=== PATIENT | female | born 1985 | race Caucasian/White ===

== ENCOUNTER 2017-09-01 13:33 | Outpatient (RCR) | payer OTHER, BC ==
[2017-07-21] MEDS: diphenhydrAMINE 25 MG CAP PO PRN (14:47)
[2017-07-21] MEDS: ACETAMINOPHEN 500 MG TAB PO PRN (14:48)
[2017-07-21 15:19] LABS: PLATELET COUNT, AUTOMATED 409 K/uL (150-450)
[2017-07-21 17:11] VITALS: BP 135/85
[~2017-09-01] VITALS: Ht 167.6 cm; Wt 94.3 kg
[~2017-09-01 13:33] MED LIST: AMOX-559 PO; CHOL500045 PO; CODE118S5 PO; DESO1TAB16 PO; DEXTROSE 5%(*) 100 ML BAG 100 ML IVPB PRN; ETON68IM SQ; LIDOCAINE/SOD BICARB 8.4% SYR ID PRN; LOSA-57 PO; NS 0.9% IVPB ONE; NS(*) 0.9% 100 ML BAG 100 ML IVPB PRN; PRED-1 PO; PRED50TA22 PO; RIT100I IV; TOCILIZUMAB IVPB ONE; [UNRECOGNIZED DRUG - CODE] IVPB
[2017-09-01] MEDS: diphenhydrAMINE 25 MG CAP PO PRN (14:21)
[2017-09-01 14:22] VITALS: BP 114/84
[2017-09-01] MEDS: ACETAMINOPHEN 500 MG TAB PO PRN (14:22)
[2017-09-01] MEDS ORDERED: TOCILIZUMAB IVPB ONE (15:00)
[2017-09-01] MEDS ORDERED: NS 0.9% IVPB ONE (15:00)
[2017-10-06] MEDS ORDERED: OMEP-137 PO (08:45)
[2017-10-06] MEDS ORDERED: ESTR42.5 PV (08:51)
== END 2017-10-18 ==
LOC: SPU 13:33
PROVIDERS: ATTEND Physician Assistant
DX: G36.0 Neuromyelitis optica [Devic] (principal)
CPT/HCPCS: 85025; 96365; J3262; J7050; Q0163; 82040; 82247; 82310; 82374; 82435; 82565; 82947; 84075; 84132; 84155; 84295; 84450; 84460; 84520

== ENCOUNTER → 2017-09-19 | Outpatient (CLI) | payer OTHER, BC ==
[~2017-09-19] MED LIST changes: -DEXTROSE 5%(*) 100 ML BAG 100 ML IVPB PRN; -LIDOCAINE/SOD BICARB 8.4% SYR ID PRN; -NS 0.9% IVPB ONE; -NS(*) 0.9% 100 ML BAG 100 ML IVPB PRN; -TOCILIZUMAB IVPB ONE
== END ==
LOC: LAB 16:31
PROVIDERS: ATTEND Nurse Practitioner Primary Care
DX: J02.9 Acute pharyngitis, unspecified (principal)
CPT/HCPCS: 86308

== ENCOUNTER → 2017-09-19 | Outpatient (CLI) | payer OTHER, BC | LOC: LAB 10:57 | PROVIDERS: ATTEND Nurse Practitioner Primary Care | DX: J02.9 Acute pharyngitis, unspecified (principal) | CPT/HCPCS: 87070 ==

== ENCOUNTER 2017-10-20 13:37 | Outpatient (RCR) | payer OTHER, BC ==
[~2017-10-20 13:37] MED LIST changes: +DEXTROSE 5%(*) 100 ML BAG 100 ML IVPB PRN; +ESTR42.5 PV; +LIDOCAINE/SOD BICARB 8.4% SYR ID PRN; +NS(*) 0.9% 100 ML BAG 100 ML IVPB PRN; +OMEP-137 PO
[2017-10-20 14:10] VITALS: BP 135/86
[2017-10-20] MEDS ORDERED: ACETAMINOPHEN 500 MG TAB PO PRN (14:10)
[2017-10-20 14:14] LABS: PLATELET COUNT, AUTOMATED 254 K/uL (150-450)
[2017-10-20] MEDS ORDERED: diphenhydrAMINE 25 MG CAP PO PRN (14:15)
[2017-10-20 14:37] LABS: LDL CHOLESTEROL 71 mg/dl
[2017-10-20] MEDS ORDERED: NS 0.9% IVPB ONE (14:45)
[2017-10-20] MEDS ORDERED: TOCILIZUMAB IVPB ONE (14:45)
[2017-10-20 16:13] VITALS: BP 116/81
[2017-11-08] MEDS ORDERED: LEVO-85 PO (10:17)
[2017-11-08] MEDS ORDERED: PRED20TA6 PO (10:17)
== END 2017-12-01 10:09 | disposition home or self-care (01) ==
LOC: SPU 13:37
PROVIDERS: ATTEND Physician Assistant
DX: G36.0 Neuromyelitis optica [Devic] (principal)
CPT/HCPCS: 85025; 96365; J3262; J7050; Q0163; 82040; 82247; 82310; 82374; 82435; 82465; 82565; 82947; 83718; 84075; 84132; 84155; 84295; 84450; 84460; 84478; 84520

== ENCOUNTER 2017-12-21 07:47 | Outpatient (RCR) | payer OTHER, BC ==
[~2017-12-21 07:47] MED LIST changes: -DEXTROSE 5%(*) 100 ML BAG 100 ML IVPB PRN; +LEVO-85 PO; -LIDOCAINE/SOD BICARB 8.4% SYR ID PRN; -NS(*) 0.9% 100 ML BAG 100 ML IVPB PRN; +PRED20TA6 PO
[2017-12-21] MEDS ORDERED: LIDOCAINE/SOD BICARB 8.4% SYR ID PRN (12:15)
[2017-12-21] MEDS ORDERED: NS(*) 0.9% 100 ML BAG 100 ML IVPB PRN (12:15)
[2017-12-21] MEDS ORDERED: DEXTROSE 5%(*) 100 ML BAG 100 ML IVPB PRN (12:15)
[2017-12-21 13:05] VITALS: BP 132/85
[2017-12-21] MEDS ORDERED: ACETAMINOPHEN 500 MG TAB PO PRN (13:35)
[2017-12-21] MEDS ORDERED: LORATADINE 10 MG TAB PO PRN (13:35)
[2017-12-21] MEDS ORDERED: NS 0.9% IVPB ONE (13:50)
[2017-12-21] MEDS ORDERED: TOCILIZUMAB IVPB ONE (13:50)
[2017-12-21 15:14] VITALS: BP 135/76
== END 2017-12-27 13:56 | disposition home or self-care (01) ==
LOC: SPU 07:47
PROVIDERS: ATTEND Physician Assistant
DX: G36.0 Neuromyelitis optica [Devic] (principal); Z79.899 Other long term (current) drug therapy
CPT/HCPCS: 96365; J3262; J7050

== ENCOUNTER → 2018-03-13 | Outpatient (CLI) | payer OTHER, BC ==
--- NOTE | 2018-03-13 13:42 | RADIOLOGY IMAGING REPORT ---
[place] [facility] [place]IENT NAME: Sabiha Croft : 1985 MR: [id number] V: [id number] EXAM DATE: ORDERING PHYSICIAN: SHARIFA BROTHERS TECHNOLOGIST: Location: [facility] [place] Patient: Sabiha Croft : 1985 Visit/Account:[id number] Date of Sevice: 03/13/2018 KNEE RIGHT W/O CONTRAST COMPARISON: None. HISTORY: Knee pain since October 2017, meniscal pathology, possible chondral injury. Right knee pain. TECHNIQUE: Noncontrast multiplanar MRI of the right knee utilizing T1 weighted and fluid sensitive s equences. CONTRAST: None. FINDINGS: Suboptimal examination because of motion artifact. Motion minimizing sequences were utilized but thes e can cause artifactual signal changes in the meniscal and chondral cartilages. FLUID: Moderate sized simple effusion. There is no He's cyst. MENISCI: Limited assessment because of motion artifact. No definite meniscal tear identified. TENDONS/LIGAMENTS: The cruciate and medial collateral ligaments, lateral collateral ligamentous comp mikayla, retinacula and extensor mechanism are intact and normal in signal. The biceps and popliteus tend ons are intact. MUSCLES: There is no muscle atrophy or edema. BONES AND CARTILAGE: Small focus of heterogeneous cartilage signal lining the posterior weightbearin g lateral femoral condyle with mild subjacent subchondral edema. No definite cartilage defects in the medial or patellofemoral compartments when accounting for motion artifact. Otherwise normal marrow s ignal and alignment. OTHER: Negative. IMPRESSION: 1. Suboptimal study because of motion artifact. 2. Moderate size right knee effusion. 3. Mild lateral femoral condyle chondromalacia with mild adjacent bone marrow edema. Report Dictated By: Heron Stringer at 03/13/2018 1:34 PM Report E-Signed By: Heron Stringer at 03/13/2018 1:38 PM WSN:[id number]
== END ==
LOC: MRI 07:06
PROVIDERS: ATTEND Orthopaedic Surgery
DX: M94.261 Chondromalacia, right knee (principal); M25.461 Effusion, right knee

== ENCOUNTER 2018-03-21 15:15 | Outpatient (RCR) | payer OTHER, BC ==
--- NOTE | 2018-01-02 11:45 | PT INITIAL EVALUATION ---
MEDICAL DIAGNOSIS: R knee pain, patella maltracking, muscle tightness, inflammation d/t autoimmune disease TREATMENT DIAGNOSIS: same DATE OF ONSET: 12/11/17 SUBJECTIVE: Sabiha Croft presents to physical therapy with complaints of R knee pain that started approximately 3 weeks ago. She reports that she has to routinely have her R knee drained approximately every 2 years due to her autoimmune disease; however, she states that luckily it is a different issue that is much more treatable. She reports that the R knee becomes worse with going down stairs and increased knee flexion and rates her knee pain to be approximately 3/10. She reports that the R knee feels better with not moving it and keeping it in an extended position and rates her knee pain to be 0/10. Pain location is R knee lateral to patellar tendon inferior to patella and described as achy and sharp. Pain scale is 3 on a ten point pain scale. REHAB PROBLEM LIST: Increased Pain Decreased ROM Decreased Strength Decreased Endurance Decreased Balance Decreased Function Decreased ADL's Decreased Mobility Decreased Gait PREVIOUS MEDICAL HISTORY: See EMR OCCUPATION: Nurse practitioner at [employer] OBJECTIVE: Posture: She demonstrates minimal B rounded shoulder, forward head, and thoracic kyphosis. ROM: L knee extension and flexion: full with normal end feel. R knee extension: full with normal end feel. R knee flexion: limited at 115 degrees with empty end feel. Strength: L hip abduction, extension, flexion, and knee extension: 4/5. R hip abduction and extension: 3+/5 extension. R hip flexion and knee extension: 4-/ 5. B knee flexion and ankle DF and PF: 4+/5. She did not have any pain with any of the MMT with an exception to R knee extension. Palpation: TTP: R knee lateral to patellar tendon inferior to patella Sensation: L2-S1 intact equal from side to side Special Tests: R VMO: 0/10 with initial engagement. R patella accessory mobility : moderate hypomobility medially, inferiorly, and superiorly along with normal mobility laterally. Mobility: Independent Gait: She demonstrated the following gait mechanics: antalgic gait with decreased L step length, increased base of support, decreased pelvic rotational mobility, decreased L knee flexion, increased L knee valgus during gait, and decreased velocity. ASSESSMENT: Sabiha will benefit from skilled physical therapy addressing the listed impairments to improve function and QOL. Short Term Goals 6 weeks: Pt will demonstrate significant improvements in R quad musculature along with normal patella tracking to abolish R knee pain to improve function and QOL. 6 weeks: Pt will demonstrate 4+/5 or greater strength with hip abductors, hip extensors, quads, hamstrings, and hip flexors to improve function and QOL. 6 weeks: Pt will be able to ambulate down stairs with 0/10 R knee pain to improve function and QOL. Patient's Goals abolish pain PLAN: Patient to be seen for Manual Therapy/STM/MET Strengthening/condition Ice/Heat Range of Motion Spinal Stabilization Work Hardening/Cond Stretching Iontophoresis Neuromuscular Re-ed Closed Chain Program Electrical Stim Posture/Body mechanics Gait Trg/Balance Trg Home Exercise Program Therapeutic Activities 2-3x/week for 6 Weeks If you have any questions, comments, or concerns about this report or plan, please contact me at . Thank you, Garth Lambert, PT, DPT PRAVIND
--- NOTE | 2018-01-25 14:44 | PT PLAN OF CARE ---
Physician: Vnicent Washburn MD Patient is being seen: 2-3x/week Therapist: Garth Lambert, PT, DPT Medical Diagnosis: R knee pain, patella maltracking, muscle tightness, inflammation d/t autoimmune Treatment Diagnosis: same Date of Onset: 12/11/17 Date of Initial Evaluation: 01/01/18 Date patient was last seen: 01/24/18 Number of treatments: 10 Number of cancellations/No shows: 1 INTERVENTIONS: Manual Therapy/STM/MET Strengthening/condition Ice/Heat Range of Motion Spinal Stabilization Work Hardening/Cond Stretching Iontophoresis Neuromuscular Re-ed Closed Chain Program Electrical Stim Posture/Body mechanics Gait Trg/Balance Trg Home Exercise Program Therapeutic Activities GOALS: 6 weeks: Pt will demonstrate significant improvements in R quad musculature along with normal patella tracking to abolish R knee pain to improve function and QOL. 6 weeks: Pt will demonstrate 4+/5 or greater strength with hip abductors, hip extensors, quads, hamstrings, and hip flexors to improve function and QOL. 6 weeks: Pt will be able to ambulate down stairs with 0/10 R knee pain to improve function and QOL. PATIENT'S GOAL: abolish pain Status of Patient's Goals: Progressing Patient Compliance: Good Prognosis: Excellent Reasons for continuing therapy: This is a progress note for Sabiha Croft. She reports that she is feeling great as long as she continues to keep the tape on. She reports that she can walk better, has full R knee bend, and the knee overall looks great with decreased swelling prior to her regressing from not utilizing the tape for a few days. She reports that she felt with the tape placed about 75 to 80% better prior to regressing again. She reports that without the tape she can go about 1.5 days before she starts to regress and have increased R knee pain, difficulty with stairs, difficulty with walking, and antalgic gait. She demonstrates significant improvements with accessory mobility of patella, decreased swelling and pain around the knee; however, we discharged the tape due to major skin irritation and she regressed after a few days, which resulted in increased knee pain, lateral quad tightness, increased pain with walking, and with going up and down the stairs. We reapplied the tape with skin protection barrier under the tape to help alleviate knee pain and improve function to where it was prior to her regressing. We will continue to improve strength and flexibility so that she can return to prior level of function without the required support of the tape. Posture: She demonstrates minimal B rounded shoulder, forward head, and thoracic kyphosis. ROM: L knee extension and flexion: full with normal end feel. R knee extension: full with normal end feel. R knee flexion: limited at 115 degrees with empty end feel. Strength: L hip abduction, extension, flexion, and knee extension: 4/5. R hip abduction and extension: 4/5 extension. R hip flexion and knee extension: 4/5. B knee flexion and ankle DF and PF: 4+/5. She did not have any pain with any of the MMT with an exception to R knee extension. Palpation: TTP: R knee lateral to patellar tendon inferior to patella Special Tests: R VMO: 6/10 with initial engagement. R patella accessory mobility : minimal hypomobility medially, inferiorly, and superiorly along with normal mobility laterally. Mobility: Independent If you have any questions, please contact me at [phone]. Thank you, Garth Lambert, PT, DPT ELSIE
--- NOTE | 2018-02-28 08:28 | PT PLAN OF CARE ---
Physician: Vincent Washburn MD Patient is being seen: 2-3x/week Therapist: Garth Lambert, PT, DPT Medical Diagnosis: R knee pain, patella maltracking, muscle tightness, inflammation d/t autoimmune Treatment Diagnosis: same Date of Onset: 12/11/17 Date of Initial Evaluation: 01/01/18 Date patient was last seen: 02/27/18 Number of treatments: 21 Number of cancellations/No shows: 0 INTERVENTIONS: Manual Therapy/STM/MET Strengthening/condition Ice/Heat Range of Motion Spinal Stabilization Work Hardening/Cond Stretching Iontophoresis Neuromuscular Re-ed Closed Chain Program Electrical Stim Posture/Body mechanics Gait Trg/Balance Trg Home Exercise Program Therapeutic Activities GOALS: 6 weeks: Pt will demonstrate significant improvements in R quad musculature along with normal patella tracking to abolish R knee pain to improve function and QOL. 6 weeks: Pt will demonstrate 4+/5 or greater strength with hip abductors, hip extensors, quads, hamstrings, and hip flexors to improve function and QOL. 6 weeks: Pt will be able to ambulate down stairs with 0/10 R knee pain to improve function and QOL. PATIENT'S GOAL: abolish pain Status of Patient's Goals: Progressing Patient Compliance: Good Prognosis: Excellent Reasons for continuing therapy: This is a progress note for Sabiha Croft. Prior to her moving over the weekend, she was feeling great and demonstrated equalized quad strength, normal accessory mobility of her patella, return to prior level of function with gait mechanics, able to perform stairs up/down without any knee pain. However, she reports that she was able to move for Monday and Monday going up and down the stairs without any pain; however, the pain returned on Monday. When the pain returned Monday, she regressed to difficulties and pain with gait, bending her knee, decreased accessory mobility of her quads particularly the vastus lateralis, unable to perform SLR. Today, she reports that her lateral quad is feeling much better. She reports that the swelling has decreased. She reports that the knee flexion continues to get better. She reports that stairs continue to be painful. She reports that walking has gotten back to normal. She demonstrates increased accessory mobility of her vastus lateralis and vastus medialis along with decreased tone, which has resulted in increased knee flexion range of motion with improvements in gait mechanics. She progresses well to the point of no pain and return to prior level of function and then she performs aggravating activities that causes the pain to return to her initial symptoms. We educated her to prevent any aggravating issues so that we can recover this injury fully. Furthermore, she has demonstrated a significant improvement in her B core, hip, and B LE strength. Otherwise, we will continue to improve strength and flexibility so that she can return to prior level of function without the required support of the tape. Posture: She demonstrates minimal B rounded shoulder, forward head, and thoracic kyphosis. ROM: L knee extension and flexion: full with normal end feel. R knee extension: full with normal end feel. R knee flexion: limited at 115 degrees with empty end feel. Strength: L hip abduction, extension, flexion, and knee extension: 4+/5. R hip abduction and extension: 4/5 extension. R hip flexion and knee extension: 4+/5. B knee flexion and ankle DF and PF: 5/5. She did not have any pain with any of the MMT with an exception to R knee extension. Palpation: TTP: R knee vastus lateralis insertional point Special Tests: R VMO: 6/10 with initial engagement. R patella accessory mobility: minimal hypomobility or normal mobility medially, inferiorly, and superiorly along with normal mobility laterally. Mobility: Independent If you have any questions, please contact me at [phone]. Thank you, Garth Lambert, PT, DPT MTDD
== END 2018-04-01 ==
LOC: PT 15:15
PROVIDERS: ATTEND Orthopaedic Surgery
DX: M25.561 Pain in right knee (principal); M22.2X1 Patellofemoral disorders, right knee
CPT/HCPCS: 97161

== ENCOUNTER 2018-03-22 13:56 | Outpatient (RCR) | payer OTHER, BC ==
[2018-02-01 14:12] VITALS: BP 121/93
[2018-02-01 14:35] LABS: PLATELET COUNT, AUTOMATED 280 K/uL (150-450)
[2018-02-01 16:12] VITALS: BP 123/89
[~2018-03-22 13:56] MED LIST changes: +ACETAMINOPHEN 500 MG TAB PO PRN; +DEXTROSE 5%(*) 100 ML BAG 100 ML IVPB PRN; +LIDOCAINE/SOD BICARB 8.4% SYR ID PRN; +LORATADINE 10 MG TAB PO PRN; +NS 0.9% IVPB ONE; +NS(*) 0.9% 100 ML BAG 100 ML IVPB PRN; +TOCILIZUMAB IVPB ONE
[2018-03-22 14:50] VITALS: BP 132/84
[2018-03-22] MEDS ORDERED: NS 0.9% IVPB ONE (15:00)
[2018-03-22] MEDS ORDERED: TOCILIZUMAB IVPB ONE (15:00)
[2018-03-22 16:16] VITALS: BP 126/84
== END 2018-05-01 ==
LOC: SPU 13:56
PROVIDERS: ATTEND Physician Assistant
DX: G36.0 Neuromyelitis optica [Devic] (principal); Z79.899 Other long term (current) drug therapy
CPT/HCPCS: 96365; J3262; J7050; 82040; 82247; 82310; 82374; 82435; 82565; 82947; 84075; 84132; 84155; 84295; 84450; 84460; 84520; 85025

== ENCOUNTER 2018-03-26 14:01 | Outpatient (RCR) | payer OTHER, BC ==
[~2018-03-26 14:01] MED LIST changes: -ACETAMINOPHEN 500 MG TAB PO PRN; -DEXTROSE 5%(*) 100 ML BAG 100 ML IVPB PRN; -LIDOCAINE/SOD BICARB 8.4% SYR ID PRN; -LORATADINE 10 MG TAB PO PRN; -NS 0.9% IVPB ONE; -NS(*) 0.9% 100 ML BAG 100 ML IVPB PRN; -TOCILIZUMAB IVPB ONE
--- NOTE | 2018-03-26 14:49 | EKG ---
FACILITY: [facility] PATIENT NAME: ISAURA NOBLES : [id number] MR: [id number] V: [id number] EXAM DATE: ORDERING PHYSICIAN: WALKER DE LEÓN TECHNOLOGIST: Test Reason : PRE-OP Blood Pressure : / mmHG Vent. Rate : 073 BPM Atrial Rate : 073 BPM P-R Int : 154 ms QRS Dur : 080 ms QT Int : 394 ms P-R-T Axes : 020 047 038 degrees QTc Int : 434 ms Normal sinus rhythm Normal ECG No previous ECGs available Confirmed by Denys Lee ([id number]) on 03/26/2018 6:41:59 PM Referred By: Confirmed By:Denys Ta
[2018-03-27 07:46] LABS: PLATELET COUNT, AUTOMATED 254 K/uL (150-450)
== END 2018-04-30 ==
LOC: RESP 14:01
PROVIDERS: ATTEND Anesthesiology
DX: Z01.812 Encounter for preprocedural laboratory examination (principal); Z01.810 Encounter for preprocedural cardiovascular examination; M22.41 Chondromalacia patellae, right knee
CPT/HCPCS: 36415; 82040; 82247; 82310; 82374; 82435; 82565; 82947; 84075; 84132; 84155; 84295; 84450; 84460; 84520; 85025; 93005

== ENCOUNTER → 2018-04-05 | Outpatient (REF) | payer OTHER, BC | LOC: ZZPBJ 15:49 | PROVIDERS: ATTEND Orthopaedic Surgery | DX: M22.41 Chondromalacia patellae, right knee (principal) | CPT/HCPCS: 89050; 89060 ==

== ENCOUNTER 2018-05-09 16:35 | Outpatient (RCR) | payer OTHER, BC ==
[2018-05-10] MEDS ORDERED: DEXTROSE 5%(*) 100 ML BAG 100 ML IVPB PRN (07:00)
[2018-05-10] MEDS ORDERED: NS(*) 0.9% 100 ML BAG 100 ML IVPB PRN (07:00)
[2018-05-10] MEDS ORDERED: LIDOCAINE/SOD BICARB 8.4% SYR ID PRN (07:00)
== END 2018-05-10 14:21 | disposition home or self-care (01) ==
LOC: SPU 16:35
PROVIDERS: ATTEND Physician Assistant
DX: G36.0 Neuromyelitis optica [Devic] (principal); Z79.899 Other long term (current) drug therapy

== ENCOUNTER 2018-05-17 13:55 | Outpatient (RCR) | payer OTHER, BC ==
[2018-05-17 14:13] VITALS: BP 107/71
[2018-05-17] MEDS ORDERED: LORATADINE 10 MG TAB PO PRN (14:25)
[2018-05-17] MEDS ORDERED: ACETAMINOPHEN 500 MG TAB PO PRN (14:25)
[2018-05-17] MEDS ORDERED: DEXTROSE 5%(*) 100 ML BAG 100 ML IVPB PRN (14:35)
[2018-05-17] MEDS ORDERED: LIDOCAINE/SOD BICARB 8.4% SYR ID PRN (14:35)
[2018-05-17] MEDS ORDERED: NS(*) 0.9% 100 ML BAG 100 ML IVPB PRN (14:35)
[2018-05-17] MEDS ORDERED: TOCILIZUMAB IVPB ONE (14:45)
[2018-05-17] MEDS ORDERED: NS 0.9% IVPB ONE (14:45)
[2018-05-17 15:59] VITALS: BP 117/86
== END 2018-07-11 09:30 | disposition home or self-care (01) ==
LOC: SPU 13:55
PROVIDERS: ATTEND Physician Assistant
DX: G36.0 Neuromyelitis optica [Devic] (principal); Z79.899 Other long term (current) drug therapy
CPT/HCPCS: 96365; J3262; J7050

== ENCOUNTER → 2018-05-31 | Outpatient (CLI) | payer OTHER, BC ==
--- NOTE | 2018-05-31 15:07 | RADIOLOGY IMAGING REPORT ---
FACILITY: [facility] PATIENT NAME: Sabiha Croft : 1985 MR: [id number] V: [id number] EXAM DATE: ORDERING PHYSICIAN: WALKER KHAN TECHNOLOGIST: Location: [facility] Patient: Sabiha Croft : 1985 Visit/Account:[id number] Date of Sevice: 05/31/2018 EXAMINATION: MRI Brain without intravenous contrast MRI Cervical spine without intravenous contrast MRI Thoracic spine without intravenous contrast HISTORY: Neuromyelitis optica. COMPARISON: Cervical and thoracic spine MRI dated 09/09/2016. Brain MRI dated 01/28/2011. TECHNIQUE: Multi-planar, multi-sequence brain, cervical spine, and thoracic spine MRI was performed without IV gadolinium. FINDINGS: BRAIN: Brain volume: Normal. Sagittal midline structures: Negative. Ventricles: Negative. Acute ischemic changes: None. Hemorrhage: None. Masses / edema: None. Vasques-white: Negative. White matter: Stable mild patchy FLAIR hyperintensity in the right anterior frontal lobe. Vessels: Negative. Extra-axial: None. Calvarium / scalp: Negative. Skull base: Negative. Visualized sinuses / orbits: Negative. Visualized upper neck: Negative. CERVICAL SPINE: Alignment: Straightening of the normal lordosis. Vertebral marrow signal: Negative. Cranio-cervical junction: Negative. Visualized posterior fossa: Negative. Soft tissues: Negative. Cervical cord: Negative. Disc Spaces: C1-2: Negative. C2-3: Negative. C3-4: Small broad-based disc osteophyte complex with mild uncovertebral and facet hypertrophy. No sig nificant stenosis. No significant change. C4-5: Small broad-based disc osteophyte complex with mild facet hypertrophy. No significant stenosis. No significant change. C5-6: Broad-based disc osteophyte complex and uncovertebral hypertrophy. Mild spinal canal stenosis. No significant change. C6-7: Small broad-based disc osteophyte complex with mild left uncovertebral and facet hypertrophy. N o significant stenosis. No significant change. C7-T1: Negative. THORACIC SPINE: Alignment: Negative. Vertebral marrow signal: Negative. Paravertebral soft tissues: Negative. Thoracic cord: Negative. Disc Spaces: Multilevel degenerative disc disease and facet hypertrophy with no significant stenosis . Small disc protrusions at a few levels in the mid and lower thoracic spine. No significant change. IMPRESSION: 1. Stable brain MRI compared with 01/28/2011. Mild chronic white matter disease in the right frontal l obe. 2. Noted abnormal signal in the spinal cord. 3. Multilevel degenerative disc disease and facet hypertrophy. Report Dictated By: Devante Lange MD at 05/31/2018 2:47 PM Report E-Signed By: Devante Lange MD at 05/31/2018 3:01 PM WSN:[email or web address]
--- NOTE | 2018-05-31 15:08 | RADIOLOGY IMAGING REPORT ---
FACILITY: [facility] PATIENT NAME: Sabiha Croft : 1985 MR: [id number] V: [id number] EXAM DATE: ORDERING PHYSICIAN: WALKER KHAN TECHNOLOGIST: Location: [facility] - [place] Patient: Sabiha Croft : 1985 Visit/Account:[id number] Date of Sevice: 05/31/2018 EXAMINATION: MRI Brain without intravenous contrast MRI Cervical spine without intravenous contrast MRI Thoracic spine without intravenous contrast HISTORY: Neuromyelitis optica. COMPARISON: Cervical and thoracic spine MRI dated 09/09/2016. Brain MRI dated 01/28/2011. TECHNIQUE: Multi-planar, multi-sequence brain, cervical spine, and thoracic spine MRI was performed without IV gadolinium. FINDINGS: BRAIN: Brain volume: Normal. Sagittal midline structures: Negative. Ventricles: Negative. Acute ischemic changes: None. Hemorrhage: None. Masses / edema: None. Vasques-white: Negative. White matter: Stable mild patchy FLAIR hyperintensity in the right anterior frontal lobe. Vessels: Negative. Extra-axial: None. Calvarium / scalp: Negative. Skull base: Negative. Visualized sinuses / orbits: Negative. Visualized upper neck: Negative. CERVICAL SPINE: Alignment: Straightening of the normal lordosis. Vertebral marrow signal: Negative. Cranio-cervical junction: Negative. Visualized posterior fossa: Negative. Soft tissues: Negative. Cervical cord: Negative. Disc Spaces: C1-2: Negative. C2-3: Negative. C3-4: Small broad-based disc osteophyte complex with mild uncovertebral and facet hypertrophy. No sig nificant stenosis. No significant change. C4-5: Small broad-based disc osteophyte complex with mild facet hypertrophy. No significant stenosis. No significant change. C5-6: Broad-based disc osteophyte complex and uncovertebral hypertrophy. Mild spinal canal stenosis. No significant change. C6-7: Small broad-based disc osteophyte complex with mild left uncovertebral and facet hypertrophy. N o significant stenosis. No significant change. C7-T1: Negative. THORACIC SPINE: Alignment: Negative. Vertebral marrow signal: Negative. Paravertebral soft tissues: Negative. Thoracic cord: Negative. Disc Spaces: Multilevel degenerative disc disease and facet hypertrophy with no significant stenosis . Small disc protrusions at a few levels in the mid and lower thoracic spine. No significant change. IMPRESSION: 1. Stable brain MRI compared with 01/28/2011. Mild chronic white matter disease in the right frontal l obe. 2. Noted abnormal signal in the spinal cord. 3. Multilevel degenerative disc disease and facet hypertrophy. Report Dictated By: Devante Lange MD at 05/31/2018 2:47 PM Report E-Signed By: Devante Lange MD at 05/31/2018 3:01 PM WSN:[id number]
--- NOTE | 2018-05-31 15:09 | RADIOLOGY IMAGING REPORT ---
FACILITY: [facility] PATIENT NAME: Sabiha Croft : 1985 MR: [id number] V: [id number] EXAM DATE: ORDERING PHYSICIAN: WALKER KHAN TECHNOLOGIST: Location: [facility] [place] Patient: Sabiha Croft : 1985 Visit/Account:[id number] Date of Sevice: 05/31/2018 EXAMINATION: MRI Brain without intravenous contrast MRI Cervical spine without intravenous contrast MRI Thoracic spine without intravenous contrast HISTORY: Neuromyelitis optica. COMPARISON: Cervical and thoracic spine MRI dated 09/09/2016. Brain MRI dated 01/28/2011. TECHNIQUE: Multi-planar, multi-sequence brain, cervical spine, and thoracic spine MRI was performed without IV gadolinium. FINDINGS: BRAIN: Brain volume: Normal. Sagittal midline structures: Negative. Ventricles: Negative. Acute ischemic changes: None. Hemorrhage: None. Masses / edema: None. Vasques-white: Negative. White matter: Stable mild patchy FLAIR hyperintensity in the right anterior frontal lobe. Vessels: Negative. Extra-axial: None. Calvarium / scalp: Negative. Skull base: Negative. Visualized sinuses / orbits: Negative. Visualized upper neck: Negative. CERVICAL SPINE: Alignment: Straightening of the normal lordosis. Vertebral marrow signal: Negative. Cranio-cervical junction: Negative. Visualized posterior fossa: Negative. Soft tissues: Negative. Cervical cord: Negative. Disc Spaces: C1-2: Negative. C2-3: Negative. C3-4: Small broad-based disc osteophyte complex with mild uncovertebral and facet hypertrophy. No sig nificant stenosis. No significant change. C4-5: Small broad-based disc osteophyte complex with mild facet hypertrophy. No significant stenosis. No significant change. C5-6: Broad-based disc osteophyte complex and uncovertebral hypertrophy. Mild spinal canal stenosis. No significant change. C6-7: Small broad-based disc osteophyte complex with mild left uncovertebral and facet hypertrophy. N o significant stenosis. No significant change. C7-T1: Negative. THORACIC SPINE: Alignment: Negative. Vertebral marrow signal: Negative. Paravertebral soft tissues: Negative. Thoracic cord: Negative. Disc Spaces: Multilevel degenerative disc disease and facet hypertrophy with no significant stenosis . Small disc protrusions at a few levels in the mid and lower thoracic spine. No significant change. IMPRESSION: 1. Stable brain MRI compared with 01/28/2011. Mild chronic white matter disease in the right frontal l obe. 2. Noted abnormal signal in the spinal cord. 3. Multilevel degenerative disc disease and facet hypertrophy. Report Dictated By: Devante Lange MD at 05/31/2018 2:47 PM Report E-Signed By: Devante Lange MD at 05/31/2018 3:01 PM WSN:[id number]
== END ==
LOC: MRI 01:42
PROVIDERS: ATTEND Psychiatry & Neurology Neurology
DX: M12.9 Arthropathy, unspecified (principal); G36.0 Neuromyelitis optica [Devic]
CPT/HCPCS: 70551; 72141; 72146

== ENCOUNTER 2018-08-16 13:56 | Outpatient (RCR) | payer OTHER, BC ==
[2018-08-16 14:00] VITALS: BP 130/91
[2018-08-16] MEDS ORDERED: LIDOCAINE/SOD BICARB 8.4% SYR ID PRN (14:15)
[2018-08-16] MEDS ORDERED: NS(*) 0.9% 100 ML BAG 100 ML IVPB PRN (14:15)
[2018-08-16] MEDS ORDERED: DEXTROSE 5%(*) 100 ML BAG 100 ML IVPB PRN (14:15)
[2018-08-16] MEDS ORDERED: LORATADINE 10 MG TAB PO PRN (14:20)
[2018-08-16] MEDS ORDERED: ACETAMINOPHEN 500 MG TAB PO PRN (14:20)
[2018-08-16 14:26] LABS: PLATELET COUNT, AUTOMATED 385 K/uL (150-450)
[2018-08-16] MEDS ORDERED: NS 0.9% IVPB ONE (14:50)
[2018-08-16] MEDS ORDERED: TOCILIZUMAB IVPB ONE (14:50)
[2018-08-16 15:54] VITALS: BP 123/90
== END 2018-11-12 16:22 | disposition home or self-care (01) ==
LOC: SPU 13:56
PROVIDERS: ATTEND Physician Assistant
DX: G36.0 Neuromyelitis optica [Devic] (principal); Z79.899 Other long term (current) drug therapy
CPT/HCPCS: 85025; J3262; J7050; 82040; 82247; 82310; 82374; 82435; 82565; 82947; 84075; 84132; 84155; 84295; 84450; 84460; 84520

== ENCOUNTER 2018-11-22 13:45 | Outpatient (RCR) | payer OTHER, BC ==
[2018-11-22 08:00] LABS: PLATELET COUNT, AUTOMATED 333 K/uL (150-450)
[2018-11-22 08:17] LABS: LDL CHOLESTEROL 85 mg/dl
[2018-11-22 13:57] VITALS: BP 127/86
[2018-11-22] MEDS ORDERED: LIDOCAINE/SOD BICARB 8.4% SYR ID PRN (14:20)
[2018-11-22] MEDS ORDERED: NS(*) 0.9% 100 ML BAG 100 ML IVPB PRN (14:20)
[2018-11-22] MEDS ORDERED: DEXTROSE 5%(*) 100 ML BAG 100 ML IVPB PRN (14:20)
[2018-11-22] MEDS ORDERED: ACETAMINOPHEN 500 MG TAB PO PRN (14:30)
[2018-11-22] MEDS ORDERED: LORATADINE 10 MG TAB PO PRN (14:30)
[2018-11-22] MEDS ORDERED: NS 0.9% IVPB ONE (15:00)
[2018-11-22] MEDS ORDERED: TOCILIZUMAB IVPB ONE (15:00)
[2018-11-22 15:48] VITALS: BP 125/89
== END 2018-12-10 13:22 | disposition home or self-care (01) ==
LOC: SPU 13:45
PROVIDERS: ATTEND Physician Assistant
DX: G36.0 Neuromyelitis optica [Devic] (principal); Z79.899 Other long term (current) drug therapy
CPT/HCPCS: 85025; J3262; J7050; 82040; 82247; 82310; 82374; 82435; 82465; 82565; 82947; 83718; 84075; 84132; 84155; 84295; 84450; 84460; 84478; 84520; 96365